=== PATIENT | female | born 1995 | race Caucasian/White ===

== ENCOUNTER 2018-08-12 15:06 | Emergency (ER) | payer MEDICAID | END 2018-08-12 19:48 | disposition left against medical advice (07) | LOC: ER 15:07 | DX: H92.09 Otalgia, unspecified ear (principal); Z53.21 Procedure and treatment not carried out due to patient leaving prior to being seen by health care provider ==

== ENCOUNTER 2022-10-30 01:35 | Emergency (ER) | payer MEDICAID ==
[~2022-10-30] VITALS: Ht 160 cm; Wt 70.5 kg
[2022-10-30] MEDS ORDERED: CefTRIAXone 1000mg IM Kit (w/lidocaine diluent) IM STA (02:06)
[2022-10-30] MEDS ORDERED: azithromycin 250mg tablet PO ONE (02:10)
[2022-10-30] MEDS ORDERED: valacyclovir 500mg tablet PO STA (03:41)
--- NOTE | 2022-10-30 03:41 | NUR ---
Pt. refusing to have lab drawn for Syphyllis states "my arms and veins are not good right now, they are too small". Dr Brian notified of refusal.
--- NOTE | 2022-10-30 03:44 | NUR ---
Patient refusing to have IM Rocephin. "I dont like shots." made aware.
[2022-10-30] MEDS ORDERED: VALA10002 PO (03:48)
[2022-10-30] MEDS ORDERED: METR-159 PO (04:08)
[2022-10-30 04:18] VITALS: BP 123/73
== END 2022-10-30 04:23 | disposition home or self-care (01) ==
LOC: ER 01:36
DX: B00.9 Herpesviral infection, unspecified (principal); N89.8 Other specified noninflammatory disorders of vagina
CPT/HCPCS: 36415; 87210; 87491; 87591; 99283; Q0112